=== PATIENT | female | born 1975 | race Hispanic/Latino ===

== ENCOUNTER 2017-09-13 00:24 | Emergency (ER) | payer BC, OTHER ==
[2017-09-13] MEDS ORDERED: KETOROLAC TROMETHAMINE 30MG/ML ONE (01:22)
[2017-09-13] MEDS ORDERED: ORPHENADRINE CITRATE 30 MG/ML ML ONE (01:22)
[2017-09-13 01:30] LABS: EOSINOPHILS % (AUTO) 12.3 % (0.0-8.0); HEMATOCRIT 26.2 % (36-48); LYMPHOCYTES % (AUTO) 25.9 % (21.0-51.0); MEAN CORPUSCULAR HEMOGLOBIN 19.7 pg (27.0-33.0); MEAN CORPUSCULAR HGB CONC 30.9 g/dL (32.0-36.0); MEAN CORPUSCULAR VOLUME 63.7 fL (79-99); MONOCYTES % (AUTO) 6.4 % (3.0-13.0); NEUTROPHILS % (AUTO) 54.4 % (40.0-77.0); PLATELET COUNT (AUTO) 489 K/uL (130-400); RED CELL DISTRIBUTION WIDTH 20.3 % (11.0-15.5); WHITE BLOOD COUNT (AUTO) 12.1 K/uL (4.8-10.8)
[2017-09-13 01:39] LABS: CREATININE 0.6 mg/dL (0.5-1.5); POTASSIUM 3.9 mmol/L (3.5-5.1)
== END 2017-09-13 02:51 | disposition home or self-care (01) ==
LOC: EDH 00:24
DX: M54.12 Radiculopathy, cervical region (principal); R53.83 Other fatigue
CPT/HCPCS: 36415; 80048; 84484; 85025; 93005; 96372 ×2; 99285; J1885; J2360

== ENCOUNTER 2021-07-09 08:42 | Emergency (ER) | payer BC ==
[~2021-07-09] VITALS: Ht 152.4 cm; Wt 78.9 kg
[2021-07-09 09:26] LABS: BASOPHILS % (AUTO) 0.5 % (0.0-5.0); EOSINOPHILS % (AUTO) 0.9 % (0.0-8.0); HEMATOCRIT 43.1 % (36-48); LYMPHOCYTES % (AUTO) 17.6 % (21.0-51.0); MEAN CORPUSCULAR HEMOGLOBIN 28.8 pg (27.0-33.0); MONOCYTES % (AUTO) 4.6 % (3.0-13.0); NEUTROPHILS % (AUTO) 76.2 % (40.0-77.0); PLATELET COUNT (AUTO) 331 K/uL (130-400); RED BLOOD CELL COUNT(AUTO) 4.79 MIL/uL (4.00-5.50); RED CELL DISTRIBUTION WIDTH 13.2 % (11.0-15.5); WHITE BLOOD COUNT (AUTO) 10.4 K/uL (4.8-10.8)
[2021-07-09 09:43] LABS: APPEARANCE,URINE Clear (CLEAR); BILIRUBIN,URINE Negative (NEGATIVE); COLOR,URINE Yellow (YELLOW); GLUCOSE, URINE (UA) Negative (NEGATIVE); KETONES,URINE 15 mg/dL (NEGATIVE); LEUKOCYTE ESTERASE ,URINE Negative (NEGATIVE); NITRATE,URINE Negative (NEGATIVE); OCCULT BLOOD,URINE Small (NEGATIVE); PROTEIN,URINE POS 1+ mg/dL (NEGATIVE)
[2021-07-09 09:45] LABS: CREATININE 0.6 mg/dL (0.5-1.5); POTASSIUM 3.5 mmol/L (3.5-5.1)
[2021-07-09 09:49] LABS: ALBUMIN 3.7 g/dL (3.5-5.0); BILIRUBIN,TOTAL 0.4 mg/dL (0.2-1.0); TOTAL PROTEIN, SERUM 7.8 g/dL (6.0-8.3)
[2021-07-09 09:51] LABS: BACTERIA,URINE Rare /HPF (None Seen); MUCUS,URINE Few LPF (None Seen); RBC,URINE 0-1 /HPF (0-1); SQUAMOUS EPITHELIAL CELL,UR Rare /HPF (0-2); WBC,URINE 0-1 /HPF (0-1)
[2021-07-09] MEDS: ONDANSETRON ODT 4MG TAB SL SCH (10:34)
[2021-07-09] MEDS: MECLIZINE HCL 25 MG TABLET PO SCH (10:34)
[2021-07-09] MEDS ORDERED: ONDA4TAB10 PO (10:59)
[2021-07-09] MEDS ORDERED: MECL-226 PO (10:59)
[2021-07-09] MEDS ORDERED: PRED20TA3 PO (10:59)
[2021-07-09 11:16] VITALS: BP 118/65
== END 2021-07-09 11:15 | disposition home or self-care (01) ==
LOC: EDH 08:42
DX: R42 Dizziness and giddiness (principal); R11.2 Nausea with vomiting, unspecified; Z90.710 Acquired absence of both cervix and uterus
CPT/HCPCS: 36415; 80053; 81001; 81025; 84484; 85025; 93005

== ENCOUNTER → 2023-02-15 | Outpatient (CLI) | payer BC ==
[~2023-02-15] MED LIST: IOHEXOL 350 MG/ML 100ML INFUS..BTL IV ONE; MECL-226 PO; METOPROLOL TARTRATE 1 MG/ML 5ML VIAL IV ONE; ONDA4TAB10 PO; PRED20TA3 PO
== END | disposition home or self-care (01) ==
LOC: RAH 10:46
PROVIDERS: ATTEND Student in an Organized Health Care Education/Training Program
DX: R07.9 Chest pain, unspecified (principal)
CPT/HCPCS: 75574; J3490; Q9967